=== PATIENT | male | born 1960 | race Caucasian/White ===

== ENCOUNTER 2022-07-24 08:35 | Emergency (ER) | payer BC ==
[~2022-07-24] VITALS: Ht 175.3 cm; Wt 81.6 kg
--- NOTE | 2022-07-24 08:45 | NUR ---
Pt ambulatory to room 4B with c/o back pain. 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
[2022-07-24] MEDS ORDERED: KETOROLAC TROMETHAMINE 15 MG INJ IM ONE (09:00)
[2022-07-24] MEDS ORDERED: CYCLOBENZAPRINE HCL 10 MG TABLET PO ONE (09:00)
[2022-07-24] MEDS ORDERED: KETOROLAC TROMETHAMINE 15 MG INJ ONE (09:06)
[2022-07-24] MEDS ORDERED: CYCLOBENZAPRINE HCL 10 MG TABLET ONE (09:06)
[2022-07-24] MEDS ORDERED: VANCOMYCIN 1000 MG VIAL ONE (09:24)
[2022-07-24] MEDS ORDERED: VANCOMYCIN IV 200 ML ONE (09:25)
[2022-07-24] MEDS ORDERED: CYCL5TAB PO (11:23)
[2022-07-24] MEDS ORDERED: NAPR-1009 PO (11:23)
[2022-07-24] MEDS ORDERED: HYDROCODONE/APAP 5-325MG TABLET ONE (12:08)
[2022-07-24] MEDS ORDERED: HYDROCODONE/APAP 5-325MG TABLET PO ONE (12:15)
--- NOTE | 2022-07-24 14:13 | NUR ---
Urine collected and sent to LAB.
[2022-07-24 14:25] LABS: *BILIRUBIN,URIN NEGATIVE (NEGATIVE); *BLOOD, URINE NEGATIVE (NEGATIVE); *CLARITY,URINE CLEAR (CLEAR); *COLOR,URINE YELLOW (YELLOW); *KETONES,URINE TRACE (NEGATIVE); *UROBILINOGEN,URINE 0.2 E.U./dl (NORMAL); LEUKOCYTE ESTERASE ,URINE NEGATIVE (NEGATIVE); NITRITE, URINE NEGATIVE (NEGATIVE); PH,URINE 6.5 (5.0-8.0); UGLUCOSE NEGATIVE (NEGATIVE)
--- NOTE | 2022-07-24 15:09 | NUR ---
Patient discharged to home in stable condition. Written and verbal after care instructions given. Patient verbalizes understanding of instructions. Stressed follow up or return to ER for worsening s/s. pt stable,
== END 2022-07-24 15:38 | disposition home or self-care (01) ==
LOC: ER 08:35
DX: M54.16 Radiculopathy, lumbar region (principal)
CPT/HCPCS: 99285; 72131; 81003; 74176; 96372; J1885; A4663; J3370